=== PATIENT | male | born 1950 | race Caucasian/White ===

== ENCOUNTER → 2019-06-11 10:36 | Outpatient (CLI) | payer MEDICARE, SELFPAY ==
[2019-06-11 12:26] LABS: Prostate Specific Antigen Scrn 1.71 ng/mL (0.1-4.0)
== END ==
PROVIDERS: PCP Student in an Organized Health Care Education/Training Program; Visit Provider Student in an Organized Health Care Education/Training Program
DX: Z12.5 Encounter for screening for malignant neoplasm of prostate (principal)
CPT/HCPCS: 36415; G0103

== ENCOUNTER 2020-10-05 13:27 | Emergency (ER) | payer MEDICARE, SELFPAY ==
[2020-10-05] VITALS (16 sets, daily range): BP systolic 135–188; BP diastolic 89–101; PULSE 58–76; RESP 14–28; TEMP 36.7; O2SAT 93–98; BMI 25.0
--- NOTE | 2020-10-05 13:43 | DI.RAD.S_ITS ---
PROCEDURE: XR CHEST 1V INDICATIONS: chest pain TECHNIQUE: One view of the chest was acquired. COMPARISON: None. FINDINGS: Surgical changes and devices: None. Lungs and pleura: Lungs are clear. No pleural effusions or pneumothorax. Mediastinum: Mediastinal contours appear normal. Heart size is normal. Bones and chest wall: No suspicious bony lesions. Overlying soft tissues appear unremarkable. IMPRESSION: No acute cardiopulmonary pathology. Dictated by: Dany Allison M.D. on 10/05/2020 at 14:11 Approved by: Dany Allison M.D. on 10/05/2020 at 14:18
[2020-10-05 13:49] LABS: Add Manual Diff / Slide Review NO; Basophils Absolute Auto 100 /uL (0-100); Eosinophils Absolute Auto 100 /uL (0-450); Eosinophils Percent Auto 0.9 % (2-4); Hematocrit 46.4 % (41-53); Hemoglobin 15.6 g/dL (13.5-17.5); Lymphocytes Absolute Auto 1500 /uL (1100-4500); Lymphocytes Percent Auto 25.4 % (25-40); Mean Corpuscular HGB Conc 33.7 % (30-36); Mean Corpuscular Hemoglobin 31.9 PG (26-34); Mean Corpuscular Volume 94.5 fL (80-100); Monocytes Absolute Auto 600 /uL (0-900); Monocytes Percent Auto 9.2 % (3-14); Neutrophils Absolute Auto 3800 /uL (1500-7000); Neutrophils Percent Auto 63.5 % (50-75); Platelet Count 279 X10^3/uL (150-400); Red Blood Cell Count 4.91 X10^6/uL (4.5-5.9); Red Cell Distribution Width 12.9 % (11.6-14.8)
--- NOTE | 2020-10-05 13:49 | ED.CHESTPAIN ---
HPI - Chest Pain General Chief Complaint: Chest Pain Stated Complaint: sharp pains in shoulr blades/chest tightness today Time Seen by Provider: 10/05/20 13:46 Source: patient Mode of arrival: Ambulatory Limitations: no limitations History of Present Illness HPI narrative: This is a 70-year-old male who comes in with complaint of discomfort between his shoulder blades and a little bit to the left. Patient states he woke up with these symptoms at 6:30 a.m. this morning. It has been slowly decreasing but not completely resolved. Patient states that he does not really have any chest pain. The discomfort does not really radiate to his neck, shoulders or elsewhere. He feels little bit more internally. He finds it is worse if he moves his neck or with movement of his body. Exertion does not seem to worsen his symptoms. Patient denies any fevers, no chills, no cold, cough or congestion. He denies any shortness of breath. No nausea, no no emesis, no other GI symptoms or urinary symptoms. Patient has not had any diaphoresis. Denies any swelling in his extremities. He normally takes a baby aspirin daily, and simvastatin. He has had hernia repair. Denies any other surgical history. No prior cardiac stents, no stress test or heart catheterizations. Patient denies tobacco, alcohol or illicit. Family history grandmother mother of lung cancer related to tobacco use. He has several nieces with congenital cardiac anomalies as well as an aunt all on the same side of the family. Dr. Harrington is his PCP. Related Data Home Medications Medication Instructions Recorded Confirmed aspirin 81 mg tablet,delayed 81 mg PO DAILY 11/29/18 07/14/20 release Previous Rx's Medication Instructions Recorded simvastatin 40 mg tablet 40 mg PO BEDTIME #90 tab 07/14/20 Allergies Allergy/AdvReac Type Severity Reaction Status Date / Time No Known Drug Allergies Allergy Verified 10/05/20 13:44 Review of Systems Review of Systems ROS Unobtainable: All systems reviewed & are unremarkable except as noted in HPI and below Patient History Medical History Abnormal chest x-ray Colon polyps Surgical History Anesthesia History of hernia surgery Family History Father No problems noted. Mother Cancer Sister No problems noted. Grandfather Cancer Grandmother Cancer Grandfather No problems noted. Grandmother Cancer Social History Smoking Status: Never smoker alcohol intake: current (1-2 glasses of wine) substance use type: does not use Smoking Status: Never smoker alcohol intake frequency: holidays/special occasions only Substance Use Type: does not use Exam Narrative Exam Narrative: GENERAL: Alert and oriented x three, well-nourished, well-appearing male in mild distress. HEENT: Head normocephalic, atraumatic, EOMI, pupils reactive, face symmetric, moist mucous membranes NECK: Supple, full range of motion CARDIOVASCULAR: Regular rate and rhythm without murmurs, rubs or gallops. RESPIRATORY: Breath sounds equal bilaterally, no wheezes rales or rhonchi. ABDOMEN: Soft, nontender. Normoactive bowel sounds all 4 quadrants. No guarding or rebound, rigidity, no mass : No CVA tenderness BACK: No cervical, thoracic or lumbar vertebral point tenderness. Patient has normal range of motion. Patient's gait is normal. Patient has a superficial laceration/linear abrasion over the left scapular region that is 2 cm in length, he is tender just underneath this area. Patient has some muscular point tenderness with palpation. There is no erythema, warmth, discharge or signs of infection. EXTREMITIES: Normal range of motion, no clubbing or edema. Neurovascularly intact. NEUROLOGICAL: Cranial nerves II through XII grossly intact. Moving all extremities SKIN: Warm, dry, no petechiae, no rashes or lesions other than described above. Initial Vital Signs Initial Vital Signs: Vital Signs Temperature 98.0 F 10/05/20 13:28 Pulse Rate 76 10/05/20 13:28 Respiratory Rate 14 10/05/20 13:28 Blood Pressure 188/95 H 10/05/20 13:28 Pulse Oximetry 97 10/05/20 13:28 Course Orders Ordered: ED Orders 10/05/20 13:40 Complete Blood Count AUTO DIFF Stat Comprehensive Metabolic Panel Stat Lipase Stat Partial Thromboplastin Time Stat Prothrombin Time INR Stat Troponin & CK Cardiac Panel Stat 10/05/20 13:43 XR chest 1V Stat EKG-12 Lead Stat 10/05/20 15:55 Troponin I Stat Discontinued Medications Aspirin (Aspirin 81 Mg Chew Tab) 324 mg PO NOW ONE Stop: 10/05/20 14:25 Last Admin: 10/05/20 14:30 Dose: 324 mg Documented by: VENKATESH Nitroglycerin (Nitroglycerin 0.4 Mg Sl Tab) 0.4 mg SL NOW ONE Stop: 10/05/20 14:25 Last Admin: 10/05/20 14:30 Dose: 0.4 mg Documented by: VENKATESH Vital Signs Vital signs: Vital Signs - 8 hr 10/05/20 13:28 10/05/20 13:39 10/05/20 14:10 Temperature 98.0 F Pulse Rate 76 69 64 Respiratory Rate 14 17 21 Blood Pressure 188/95 H 169/101 H Pulse Oximetry 97 97 97 10/05/20 14:15 10/05/20 14:20 10/05/20 14:25 Temperature Pulse Rate 64 60 62 Respiratory Rate 21 23 22 Blood Pressure Pulse Oximetry 97 97 95 10/05/20 14:30 10/05/20 14:35 10/05/20 14:40 Temperature Pulse Rate 61 70 65 Respiratory Rate 28 H 24 27 H Blood Pressure 187/91 H 160/89 H Pulse Oximetry 97 93 95 10/05/20 14:41 10/05/20 14:45 10/05/20 15:00 Temperature Pulse Rate 69 63 61 Respiratory Rate 25 H 22 18 Blood Pressure 135/89 135/91 H 150/95 H Pulse Oximetry 95 95 94 10/05/20 15:30 10/05/20 16:00 10/05/20 16:30 Temperature Pulse Rate 63 58 L 61 Respiratory Rate 21 18 26 H Blood Pressure 162/98 H 161/90 H 176/95 H Pulse Oximetry 96 96 96 10/05/20 17:56 Temperature Pulse Rate 64 Respiratory Rate 15 Blood Pressure 176/95 H Pulse Oximetry 98 MDM - Chest Pain Lab Data Result diagrams: 10/05/20 13:40 10/05/20 13:40 Labs: Lab Results 10/05/20 10/05/20 10/05/20 Range/Units 13:40 13:40 13:40 WBC 6.0 (4.5-11.0) X10^3/uL RBC 4.91 (4.5-5.9) X10^6/uL Hgb 15.6 (13.5-17.5) g/dL Hct 46.4 (41-53) % MCV 94.5 (80-100) fL MCH 31.9 (26-34) PG MCHC 33.7 (30-36) % RDW 12.9 (11.6-14.8) % Plt Count 279 (150-400) X10^3/uL Neut % (Auto) 63.5 (50-75) % Lymph % (Auto) 25.4 (25-40) % [place] % (Auto) 9.2 (3-14) % Eos % (Auto) 0.9 L (2-4) % Baso % (Auto) 1.0 (0-2) % Neut # (Auto) 3800 (0116-8454) /uL Lymph # (Auto) 1500 (2586-5700) /uL [place] # (Auto) 600 (0-900) /uL Eos # (Auto) 100 (0-450) /uL Baso # (Auto) 100 (0-100) /uL PT 11.1 (10.1-12.7) SECONDS INR 1.0 (0.9-1.3) APTT 31 (26.4-36.2) SECONDS Sodium 137 (137-145) mmol/L Potassium 4.0 (3.4-5.1) mmol/L Chloride 105 (98-107) mmol/L Carbon Dioxide 25 (22-32) mmol/L BUN 17 (9-20) mg/dL Creatinine 0.76 (0.66-1.25) mg/dL Estimated GFR > 60.0 (>60) mL/min BUN/Creatinine Ratio 22.4 H (6-22) Glucose 109 (80-110) mg/dL Calcium 9.3 (8.4-10.2) mg/dL Total Bilirubin 0.7 (0.2-1.3) mg/dL AST 29 (17-59) IU/L ALT 22 (<50) IU/L Alkaline Phosphatase 88 (38-126) U/L Total Creatine Kinase 79 (55-170) U/L CK-MB (CK-2) TNP CK-MB (CK-2) Rel Index TNP Troponin I < 0.012 (0.01-0.034) ng/mL Total Protein 7.4 (6.3-8.2) g/dL Albumin 4.5 (3.5-5.0) g/dL Globulin 2.9 (1.7-4.1) g/dL Albumin/Globulin Ratio 1.6 (1.0-2.8) Lipase 68 (23-300) U/L 10/05/20 Range/Units 15:55 WBC (4.5-11.0) X10^3/uL RBC (4.5-5.9) X10^6/uL Hgb (13.5-17.5) g/dL Hct (41-53) % MCV (80-100) fL MCH (26-34) PG MCHC (30-36) % RDW (11.6-14.8) % Plt Count (150-400) X10^3/uL Neut % (Auto) (50-75) % Lymph % (Auto) (25-40) % [place] % (Auto) (3-14) % Eos % (Auto) (2-4) % Baso % (Auto) (0-2) % Neut # (Auto) (0431-0115) /uL Lymph # (Auto) (2232-1685) /uL [place] # (Auto) (0-900) /uL Eos # (Auto) (0-450) /uL Baso # (Auto) (0-100) /uL PT (10.1-12.7) SECONDS INR (0.9-1.3) APTT (26.4-36.2) SECONDS Sodium (137-145) mmol/L Potassium (3.4-5.1) mmol/L Chloride (98-107) mmol/L Carbon Dioxide (22-32) mmol/L BUN (9-20) mg/dL Creatinine (0.66-1.25) mg/dL Estimated GFR (>60) mL/min BUN/Creatinine Ratio (6-22) Glucose (80-110) mg/dL Calcium (8.4-10.2) mg/dL Total Bilirubin (0.2-1.3) mg/dL AST (17-59) IU/L ALT (<50) IU/L Alkaline Phosphatase (38-126) U/L Total Creatine Kinase (55-170) U/L CK-MB (CK-2) CK-MB (CK-2) Rel Index Troponin I < 0.012 (0.01-0.034) ng/mL Total Protein (6.3-8.2) g/dL Albumin (3.5-5.0) g/dL Globulin (1.7-4.1) g/dL Albumin/Globulin Ratio (1.0-2.8) Lipase (23-300) U/L Imaging Data Chest x-ray: Radiologist's Impression: [address] [id number] ReportSigned Patient: Guillaume De León RMR#: [id number]: 1950Acct:[id number]/Sex: 70 / MDate of Service: 10/05/20Loc: EDAccession Number: [id number] Procedure: XR chest 1V Ordering Provider: Radha Rios D.O. PROCEDURE: XR CHEST 1V INDICATIONS: chest pain TECHNIQUE: One view of the chest was acquired. COMPARISON: None. FINDINGS: Surgical changes and devices: None. Lungs and pleura: Lungs are clear. No pleural effusions or pneumothorax. Mediastinum: Mediastinal contours appear normal. Heart size is normal. Bones and chest wall: No suspicious bony lesions. Overlying soft tissues appear unremarkable. IMPRESSION: No acute cardiopulmonary pathology. Dictated by: Dany Allison M.D. on 10/05/2020 at 14:11 Approved by: Dany Allison M.D. on 10/05/2020 at 14:18 ECG Data Attestation: I personally reviewed and interpreted this ECG as follows: Prior ECG tracings: not available for review Interpretation: Sinus rhythm rate of 68, FL 122, QRS of 129 and QTC 449. Patient has right bundle-branch block. Left axis deviation. No prior EKGs for comparison. EKG2. Patient's EKG shows sinus rhythm right bundle branch. There is is T-waves flipped in 1, 2 and aVL which is changed from prior. Patient also has upright T-wave in AVR and lead 3 which were downwards. EKG3. Sinus bradycardia left axis deviation with right bundle-branch block. Rate of 58, P are 124, QRS of 128 QTC 447. Patient's EKG appears similar to their 1st with no new EKG changes. MDM Narrative Medical decision making narrative: This is a 70-year-old male who comes to emergency department with sharp pain/tightness in his shoulder blade region. Patient does have some musculoskeletal component with movement and palpation. Initial EKG shows right bundle branch block with left axis deviation. Troponin are negative patient's chest x-ray and additional labs. Patient was hypertensive and given sublingual nitro which improved his pressure, it also did seem to help his thoracic pain. Patient was greater than 6 hours from his initial onset of symptoms but troponin was repeated and repeat is negative as well. EKG was repeated changes but do not appear consistent with cardiac change and possibly lead placement so asked be repeated a 3rd time and this appears consistent with prior. Discussed with patient plan for follow-up with primary care, continue aspirin and his simvastatin although my suspicion is more likely musculoskeletal. Discharge Plan Departure Patient Disposition: Home Clinical Impression: Back pain, thoracic Instructions: DI for Thoracic Back Pain Activity Restrictions/Additional Instructions: Follow up with your physician this week for recheck. Was them know you were seen in the emergency department. You may wish to discuss about possible stress testing. I would recommend taking an aspirin 324 mg daily until you follow-up with her physician. Return to the ER for fevers, new or worsening chest pain, thoracic pain that is changing, worsening, shortness of breath, diaphoresis or sweating, lightheadedness or passing out, persistent vomiting other new or concerning symptoms. Prescriptions: No Action aspirin 81 mg tablet,delayed release (DR/EC) 81 mg PO DAILY RF: 0 simvastatin 40 mg tablet 40 mg PO BEDTIME Qty: 90 RF: 3 Referrals: Shai De Leon MD [Primary Care Provider] -
[2020-10-05 13:54] LABS: Prothrombin Time 11.1 SECONDS (10.1-12.7)
[2020-10-05 13:56] LABS: PTT Partial Thromboplastin Tim 31 SECONDS (26.4-36.2)
--- NOTE | 2020-10-05 13:58 | PC.NURSE ---
bp on left side 180/109 right arm 188/95
[2020-10-05 14:01] LABS: Alanine Aminotransferase 22 IU/L (<50); Albumin 4.5 g/dL (3.5-5.0); Albumin Globulin Ratio 1.6 (1.0-2.8); Alkaline Phosphatase 88 U/L (38-126); Aspartate Aminotransferase 29 IU/L (17-59); BUN Creatinine Ratio 22.4 (6-22); Bilirubin Total 0.7 mg/dL (0.2-1.3); Blood Urea Nitrogen 17 mg/dL (9-20); Calcium 9.3 mg/dL (8.4-10.2); Carbon Dioxide 25 mmol/L (22-32); Chloride 105 mmol/L (98-107); Creatine Kinase 79 U/L (55-170); Estimated Glomerular Filt Rate > 60.0 mL/min (>60); Globulin 2.9 g/dL (1.7-4.1); Glucose 109 mg/dL (80-110); HEMOLYSIS < 15 (0-50); Lipase 68 U/L (23-300); Sodium 137 mmol/L (137-145); Total Protein 7.4 g/dL (6.3-8.2)
[2020-10-05 14:13] LABS: Troponin I < 0.012 ng/mL (0.01-0.034)
[2020-10-05] MEDS: ASPIRIN 81 MG CHEW TAB 324 MG PO (14:30)
[2020-10-05] MEDS: NITROGLYCERIN 0.4 MG SL TAB SL (14:30)
--- NOTE | 2020-10-05 14:43 | PC.NURSE ---
Pt states pain left back down from 2/10 to 0/10 s/p 1 dose NTG SL.
[2020-10-05 16:48] LABS: Troponin I < 0.012 ng/mL (0.01-0.034)
== END 2020-10-05 17:57 | disposition home or self-care (01) ==
PROVIDERS: Emergency Provider Emergency Medicine; PCP Student in an Organized Health Care Education/Training Program
DX: M54.6 Pain in thoracic spine (principal); R07.9 Chest pain, unspecified; I10 Essential (primary) hypertension
CPT/HCPCS: 36415; 71045; 80053; 82550; 83690; 84484; 85025; 85610; 85730; 93005; 93010; 99283; 99284

== ENCOUNTER → 2020-11-12 10:03 | Outpatient (CLI) | payer MEDICARE, SELFPAY ==
[2020-11-12 11:29] LABS: COVID19 -Nasal RAPID Negative (Negative)
== END ==
PROVIDERS: PCP Student in an Organized Health Care Education/Training Program; Visit Provider Surgery
DX: Z20.822 Contact with and (suspected) exposure to COVID-19 (principal)
CPT/HCPCS: 87635; C9803

== ENCOUNTER 2020-11-15 08:03 | Day surgery (SDC) | payer MEDICARE, SELFPAY ==
[2020-11-15] VITALS (7 sets, daily range): BP systolic 123–156; BP diastolic 78–97; PULSE 55–72; RESP 12–18; TEMP 36–36.7; O2SAT 96–98; BMI 24.5
--- NOTE | 2020-11-15 | PATH_ITS ---
[facility] Accession Number: [id number] . 01 Material submitted: . rectum - RECTUM POLYP . 02 Diagnosis: Rectum Polyp: Tubular adenoma. MRV 11/17/2020 1326 Local . 02 Electronically signed: . Yolette Boothe MD, Pathologist NPI- [id number] . 01 Gross description: . RECTUM POLYP: Received in formalin is 1 fragment(s) of ramírez, soft tissue measuring 0.3 x 0.3 x 0.3 cm submitted entirely in 1 cassette(s) /BETHANIE 11/16/20204 Local . 02 Pathologist provided ICD-10: K63.5 . 02 CPT . 355238 Performed at: 01 [facility] [place] [facility] [address] [id number] MD Shilo Wolfe MD Phone: [phone] Performed at: 02 [facility] [address] [place], [place] [id number] MD Itzel Lo MD Phone: [phone]
[2020-11-15] MEDS: LACTATED RINGERS 1,000 ML 200 ML IV (08:31)
--- NOTE | 2020-11-15 09:12 | PM.HP.1 ---
History of Present Illness History of Present Illness Date Patient Seen: 11/15/20 Time Patient Seen: 09:12 Chief complaint: SDC Narrative: The patient presents for colorectal sreening. He's had previous colonoscopy most recently 10 years ago and normal. No personal or family history of colon cancer. On further history denies any recent gastrointestinal symptoms. No nausea, vomiting, abdominal pain, loss of appetite, unexplained weight loss, change in bowel habits, diarrhea, constipation, melena, hematochezia, or bright red blood per rectum. Patient History Medical History Abnormal chest x-ray Colon polyps Surgical History Anesthesia History of hernia surgery Family & Social History Family History Father No problems noted. Mother Cancer Sister No problems noted. Grandfather Cancer Grandmother Cancer Grandfather No problems noted. Grandmother Cancer Social History: household members spouse Tobacco & Substance use: Smoking Status Never smoker alcohol intake current alcohol intake frequency 0-2 drinks per day Substance Use Type does not use Meds Home Medications and Allergies Home Medications Medication Instructions Recorded Confirmed Type aspirin 81 mg tablet,delayed 81 mg PO DAILY 11/29/18 11/15/20 History release simvastatin 40 mg tablet 40 mg PO BEDTIME #90 tab 07/14/20 11/15/20 Rx tamsulosin 0.4 mg capsule 0.4 mg PO BEDTIME #30 cap 10/26/20 11/15/20 Rx Allergies Allergy/AdvReac Type Severity Reaction Status Date / Time No Known Drug Allergies Allergy Verified 11/15/20 08:26 Review of Systems Review of Systems ROS: Yes All systems reviewed with the patient and are negative except as otherwise documented Exam Vital Signs (past 8 hours): - 11/15/20 08:31 Temperature 97.2 F L Pulse Rate 60 Respiratory Rate 16 Blood Pressure 156/89 H Pulse Oximetry 98 Oxygen Delivery Method Room Air Narrative Exam Narrative: General-no acute distress, well nourished adult male HEENT-moist mucous membranes, no scleral icterus Neck-supple, no lymphadenopathy Chest- non labored respirations, clear to auscultation bilaterally Cardiac-regular rate no peripheral edema Abdomen-soft, nontender, non distended Extremities-warm, well perfused Neurological-alert and oriented, no focal deficits Assessment & Plan Assessment & Plan narrative: The patient requires colorectal screening and colonoscopy is recommended. Technical details were discussed. Risks, benefits, alternatives explained. Risks including but not limited to myocardial infarction, aspiration, bleeding, pain, missed lesion, incomplete examination, need for further radiographic studies, colonic perforation, and need for major abdominal surgery were discussed. All questions were answered to their satisfaction, and they are in agreement with this plan.
[2020-11-15] MEDS: MIDAZOLAM 5 MG/5 ML VIAL IV (09:30)
[2020-11-15] MEDS: fentaNYL 250 MCG/5 ML INJ IV (09:30)
--- NOTE | 2020-11-15 09:45 | P.OP.ENDO_ITS ---
Operative Date/Time/Diagnoses Date of procedure: 11/15/20 Time of procedure: 09:45 Pre-op diagnosis: history of colonic polyps Post-op diagnosis: same Procedure & Clinicians Study performed: Colonoscopy Polypectomy Same procedure as scheduled: Yes Indications: 70-year-old man last colonoscopy 10 years ago normal personal history of colonic polyps here for screening colonoscopy Surgeon: Nando Mcgee Procedure Notes Procedure in detail: Medications: Conscious sedation using 5mg IV midazolam and 150mcg IV of fentanyl The history and physical was performed/updated and the patient is ASA class is 2. The procedure was discussed in detail with the patient. Potential risks complications including infection, bleeding, missed diagnosis, perforation, need for surgery, and were explained. Their questions were answered and informed consent was obtained. Patient was brought to the procedure room and placed standard monitoring equipment. The patient's vital signs were monitored continuously throughout the entire procedure. Prior to starting time-out was performed. The patient was placed in the left lateral recumbent position. Procedural sedation was administered. Examination began with a thorough inspection of the perianal area there was no evidence of fissures, fistulae, external hemorrhoids or cutaneous malignancy. The colonoscopy scope was then placed into the anal canal and was advanced to the cecum, which was identified by the ileocecal valve, the appendiceal orifice and the confluence of the taenia. The scope was then slowly withdrawn examining colon thoroughly in all directions, irrigating it of any res idual stool. 5 mm polyp within the rectum removed with the Jumbo biopsy forceps. Sigmoid diverticulosis The patient tolerated the procedure well. They will be discharged once criteria are met. The prep was of good/excellent quality. The withdrawl time was 9 minutes. The sedation time was 25 minutes. Specimen(s): other (Rectal polyp) Complications: none Impression: Colonic polyp Post-procedure Recommendations: Colonscopy in 5 years Disposition: same day surgery
--- NOTE | 2020-11-15 09:50 | SUR.PHASEI ---
Received to PACU after colonoscopy with sedation. Airway patent, self maintained. Report received from VICKIE Judd.
== END 2020-11-15 10:22 | disposition home or self-care (01) ==
PROVIDERS: PCP Student in an Organized Health Care Education/Training Program; Referring Provider Surgery; Visit Provider Surgery
PROC: 0DJD8ZZ Inspection of Lower Intestinal Tract, Via Natural or Artificial Opening Endoscopic (ICD-10-PCS; CPT 45378; principal; 2020-11-15 09:15)
DX: Z12.11 Encounter for screening for malignant neoplasm of colon (principal); Z86.010 Personal history of colon polyps; K57.30 Diverticulosis of large intestine without perforation or abscess without bleeding; D12.8 Benign neoplasm of rectum
CPT/HCPCS: 45380; 99152; J2250; J3010

== ENCOUNTER → 2020-12-16 12:37 | Outpatient (CLI) | payer MEDICARE, SELFPAY ==
[2020-12-16] MEDS: COVID-19 VACC #1, MRNA(MOD) 100 MCG/0.5 ML VIAL IM (12:46)
== END ==
PROVIDERS: PCP Student in an Organized Health Care Education/Training Program; Visit Provider Internal Medicine
DX: Z23 Encounter for immunization (principal)
CPT/HCPCS: 0011A; 91301

== ENCOUNTER → 2021-01-13 12:26 | Outpatient (CLI) | payer MEDICARE, SELFPAY ==
[2021-01-13] MEDS: COVID-19 VACC #2, MRNA(MOD) 100 MCG/0.5 ML VIAL IM (12:32)
== END ==
PROVIDERS: PCP Student in an Organized Health Care Education/Training Program; Visit Provider Internal Medicine
DX: Z23 Encounter for immunization (principal)
CPT/HCPCS: 0012A; 91301

== ENCOUNTER 2021-06-24 16:33 | Emergency (ER) | payer MEDICARE, SELFPAY ==
[2021-06-24 17:08] VITALS: BP 169/85; PULSE 63; RESP 18; TEMP 36.9; O2SAT 96; BMI 25.4
--- NOTE | 2021-06-24 18:57 | DI.US.S_ITS ---
PROCEDURE: US PERIPH VENOUS LOW EXTREM RT INDICATIONS: RIGHT THIGH PAINFUL LUMP TECHNIQUE: Real-time imaging, as well as color and pulse Doppler interrogation, were performed of the lower extremity deep veins from the inguinal ligament to the popliteal fossa. COMPARISON: None. FINDINGS: The common femoral, femoral and popliteal veins are normally compressible, and free of intraluminal thrombus. Color and pulse Doppler demonstrate normal phasic intraluminal flow. There is normal augmentation response to distal compression maneuver. IMPRESSION: No evidence of right lower extremity DVT. Dictated by: Jerome Ernst M.D. on 06/24/2021 at 21:51 Approved by: Jerome Ernst M.D. on 06/24/2021 at 21:52
--- NOTE | 2021-06-24 18:58 | DI.CT.S_ITS ---
PROCEDURE: CT ABDOMEN PELVIS W CON INDICATIONS: IV contrast only/right inguinal pain/hernia history TECHNIQUE: After the administration of intravenous contrast, axial sections acquired from the lung bases to the pubic symphysis. Coronal and sagittal reformats were performed. For radiation dose reduction, the following was used: automated exposure control, adjustment of mA and/or kV according to patient size. COMPARISON: None. FINDINGS: Image quality: Excellent. Lung bases: Unremarkable. Heart: No significant findings. ABDOMEN: Liver: Unremarkable. Gallbladder: Unremarkable. Biliary ducts: Unremarkable. Pancreas: Unremarkable. Spleen: Unremarkable. Adrenal Glands: Unremarkable. Kidneys and Ureters: Parapelvic renal cysts are present bilaterally. Stomach and Bowel: Stomach and small bowel is within normal limits. There is eccentric thickening of the right aspect of the anal rectal junction with a possible 35 mm diameter mass. Normal appendix. Peritoneum: No abnormal intraperitoneal fluid. No free air. Ventral Wall: No hernias. Abdominal Nodes: No retroperitoneal or mesenteric adenopathy by size criteria. Vessels: Aorta and inferior vena cava are normal in size. PELVIS: Pelvic Organs: Prostate is enlarged. Bladder: Unremarkable. Pelvic Nodes: No enlarged lymph nodes. Miscellaneous: Fat containing bilateral inguinal hernias are present. Bones: Unremarkable. IMPRESSION: 1. Fat containing bilateral inguinal hernias. No evidence of bowel containing hernias. 2. Possible an anorectal junction mass. Correlation with physical examination recommended. 3. Normal appendix. 4. Prostate enlargement. Recommend correlation with PSA values. Dictated by: Jerome Ernst M.D. on 06/24/2021 at 20:15 Approved by: Jerome Ernst M.D. on 06/24/2021 at 20:18
--- NOTE | 2021-06-24 19:00 | ED.MALEGU ---
HPI - Male Genitourinary General Chief complaint: Urogenital-Male Stated complaint: HERNIA PAIN ACROSS ABD VEIN BULGING RT LEG FOOT Time Seen by Provider: 06/24/21 18:47 Source: patient Mode of arrival: Family Vehicle Limitations: no limitations History of Present Illness HPI Narrative: Patient here for 2 complaints. Patient here with significant other. Complains of right inguinal pain as well as right distended vein in the right medial thigh. Patient has history of bilateral inguinal hernia repair greater than 25 years ago at [facility]. Has been doing well. Did see Dr. Mcgee recently for colonoscopy screening this past year. But no inguinal surgery. 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 Patient has history of distended vein in the right medial thigh for many years however have recently has had some swelling to it and then some foot tingling without back pain this past week. No changes in bowel movements. No urinary complaints. No chest pain no abdominal pain no dyspnea. No history of blood clots in legs or lungs. Does not recall any distended mass or hernia that he had to reduce himself. Has had scrotal discomfort on the right side. No urinary complaints. Denies any swelling or mass in the right scrotum Related Data Home Medications Medication Instructions Recorded Confirmed aspirin 81 mg tablet,delayed 81 mg PO DAILY 11/29/18 11/15/20 release Previous Rx's Medication Instructions Recorded simvastatin 40 mg tablet 40 mg PO BEDTIME #90 tab 07/14/20 tamsulosin 0.4 mg capsule 0.4 mg PO BEDTIME #90 cap 11/23/20 Allergies Allergy/AdvReac Type Severity Reaction Status Date / Time No Known Drug Allergies Allergy Verified 06/24/21 17:14 Review of Systems Review of Systems Narrative: GENERAL: Denies chills, fatigue, malaise, fever, sweats. HEENT: Denies sinus pain, ear pain, sore throat RESPIRATORY: Denies dyspnea, cough CARDIOVASCULAR: Denies chest pain, palpitations, positive for right thigh pain GASTROINTESTINAL: Denies nausea, vomiting, abdominal pain, positive for inguinal pain : Denies dysuria, frequency, hematuria MUSCULOSKELETAL: Complaint muscle denies bony pain, denies back pain SKIN: Denies rash, skin lesions NEUROLOGIC: Denies weakness, positive numbness right foot ROS Unobtainable: All systems reviewed & are unremarkable except as noted in HPI and below Patient History Medical History Abnormal chest x-ray Colon polyps Surgical History Anesthesia History of hernia surgery Family History Father No problems noted. Mother Cancer Sister No problems noted. Grandfather Cancer Grandmother Cancer Grandfather No problems noted. Grandmother Cancer Social History household members: spouse Smoking Status: Never smoker alcohol intake: current substance use type: does not use Smoking Status: Never smoker alcohol intake frequency: a few times a week Substance Use Type: does not use Exam Narrative Exam Narrative: GENERAL: in no distress, not toxic not dyspneic, pants and underwear removed. Socks and shoes removed. HEAD: Normocephalic. EYES: Pupils equal round No scleral icterus. No injection no discharge ENT: Mucous membranes moist. NECK: Trachea midline. CARDIOVASCULAR: Regular rate and rhythm without murmurs RESPIRATORY: Clear to auscultation. Breath sounds equal bilaterally. No wheezes, rales, or rhonchi. GASTROINTESTINAL: Abdomen soft, non-tender examination right inguinal area. As well as scrotal exam with digital insertion. No palpable hernia or mass in the scrotum with coughing. Slight palpable mass in the inguinal crease with coughing. No discoloration of the skin. Bowel sounds present. No peritoneal signs. EXTREMITIES: No gross deformities. Examination right lower extremity. There is distended vein at the right medial thigh. Nontender. No red streaking. No calf tenderness no palpable cords. BACK: No flank tenderness. NEURO: AOx4. SKIN: Warm and dry PSYCH: Not anxious, is cooperative Initial Vital Signs Initial Vital Signs: Vital Signs Temperature 98.4 F 06/24/21 17:08 Pulse Rate 63 06/24/21 17:08 Respiratory Rate 18 06/24/21 17:08 Blood Pressure 169/85 H 06/24/21 17:08 Pulse Oximetry 96 06/24/21 17:08 Course Course Course Narrative: No new issues during course of stay. Orders Ordered: Discontinued Medications Sodium Chloride (Normal Saline 0.9%) 500 mls @ 1,000 mls/hr IV BOLUS ONE Stop: 06/24/21 19:26 Last Infusion: 06/24/21 19:51 Dose: 0 mls/hr Documented by: Admin: 06/24/21 19:19 Dose: 1,000 mls/hr Documented by: LUANA Reevaluation(s) Reevaluation #1: Reviewed results with patient. Does not want wait for final results of the ultrasound of the leg. He does have established surgeon to follow up with regarding CT scan findings. As well as family doctor for the distended vein on his leg. Time: 21:26 Vital Signs Vital signs: Vital Signs - 8 hr 06/24/21 17:08 06/24/21 19:16 06/24/21 19:31 Temperature 98.4 F Pulse Rate 63 56 L 54 L Respiratory Rate 18 18 Blood Pressure 169/85 H 172/96 H Pulse Oximetry 96 97 96 06/24/21 20:02 06/24/21 20:30 06/24/21 21:00 Temperature Pulse Rate 53 L 60 57 L Respiratory Rate Blood Pressure Pulse Oximetry 98 97 97 MDM - Male Genitourinary Differential Diagnosis Differential diagnosis: Likely inguinal hernia and other (DVT/SVT) Medical Records Medical records narrative: Preliminary lower extremity venous Doppler no DVT on the right leg. Small punctate tiny compressible superficial veins. At the site of the right medial thigh lump Lab Data Result diagrams: 06/24/21 19:10 06/24/21 19:10 Labs: Lab Results 06/24/21 06/24/21 Range/Units 19:10 19:10 WBC 6.5 (4.5-11.0) X10^3/uL RBC 4.37 L (4.5-5.9) X10^6/uL Hgb 14.3 (13.5-17.5) g/dL Hct 41.7 (41-53) % MCV 95.4 (80-100) fL MCH 32.6 (26-34) PG MCHC 34.2 (30-36) % RDW 12.6 (11.6-14.8) % Plt Count 252 (150-400) X10^3/uL Neut % (Auto) 65.4 (50-75) % Lymph % (Auto) 22.3 L (25-40) % [place] % (Auto) 10.4 (3-14) % Eos % (Auto) 0.9 L (2-4) % Baso % (Auto) 1.0 (0-2) % Neut # (Auto) 4200 (1334-4680) /uL Lymph # (Auto) 1400 (8141-2599) /uL [place] # (Auto) 700 (0-900) /uL Eos # (Auto) 100 (0-450) /uL Baso # (Auto) 100 (0-100) /uL Sodium 138 (137-145) mmol/L Potassium 3.7 (3.4-5.1) mmol/L Chloride 108 H (98-107) mmol/L Carbon Dioxide 26 (22-32) mmol/L BUN 15 (9-20) mg/dL Creatinine 0.74 (0.66-1.25) mg/dL Estimated GFR > 60.0 (>60) mL/min BUN/Creatinine Ratio 20.3 (6-22) Glucose 96 (80-110) mg/dL Calcium 8.7 (8.4-10.2) mg/dL Total Bilirubin 0.4 (0.2-1.3) mg/dL AST 26 (17-59) IU/L ALT 21 (<50) IU/L Alkaline Phosphatase 78 (38-126) U/L Total Protein 6.6 (6.3-8.2) g/dL Albumin 4.1 (3.5-5.0) g/dL Globulin 2.5 (1.7-4.1) g/dL Albumin/Globulin Ratio 1.6 (1.0-2.8) Urine Dip Bedside Urine Glucose Negative Bedside Urine Bilirubin - Negative Bedside Urine Ketone - Negative Urine Specific [place] 1.025 Bedside Urine Occult Blood - Negative Bedside Urine pH 6.0 Bedside Urine Protein - Negative Bedside Urine Urobilinogen - Negative Bedside Urine Nitrite - Negative Bedside Urine Leukocytes - Negative Esterase Imaging Data CT scan - abdomen/pelvis: Radiologist's Impression: [address] [address] [address] Scan Report Signed Patient: Guillaume De León MR#: [id number] : 1950 Acct:[id number] Age/Sex: 70 / M Date of Service: 06/24/21 Loc: ED Accession Number: [id number] ?? Procedure: CT abdomen pelvis w con Ordering Provider: Dino Velazquez MD PROCEDURE:? CT ABDOMEN PELVIS W CON ? INDICATIONS:? IV contrast only/right inguinal pain/hernia history ? TECHNIQUE:? After the administration of intravenous contrast, axial sections acquired from the lung bases to the pubic symphysis.? Coronal and sagittal reformats were performed.? For radiation dose reduction, the following was used:? automated exposure control, adjustment of mA and/or kV according to patient size.? ? COMPARISON:? None. ? FINDINGS:? Image quality:? Excellent.? ? Lung bases:? Unremarkable. Heart:? No significant findings. ? ABDOMEN: Liver:? Unremarkable.? ? Gallbladder:? Unremarkable.? ? Biliary ducts:? Unremarkable.? ? Pancreas:? Unremarkable.? ? Spleen:? Unremarkable.? ? Adrenal Glands:? Unremarkable.? ? Kidneys and Ureters:? Parapelvic renal cysts are present bilaterally. ? Stomach and Bowel:? Stomach and small bowel is within normal limits.? There is eccentric thickening of the right aspect of the anal rectal junction with a possible 35 mm diameter mass.? Normal appendix. Peritoneum:? No abnormal intraperitoneal fluid.? No free air.? ? Ventral Wall: ? No hernias.? Abdominal Nodes:? No retroperitoneal or mesenteric adenopathy by size criteria.? Vessels:? Aorta and inferior vena cava are normal in size.? ? PELVIS: Pelvic Organs:? Prostate is enlarged. Bladder:? Unremarkable.? ? Pelvic Nodes: No enlarged lymph nodes.? Miscellaneous:? Fat containing bilateral inguinal hernias are present. ? Bones:? Unremarkable.? IMPRESSION: 1. Fat containing bilateral inguinal hernias.? No evidence of bowel containing hernias. 2. Possible an anorectal junction mass.? Correlation with physical examination recommended. 3. Normal appendix. 4. Prostate enlargement.? Recommend correlation with PSA values.? ? Dictated by: Jerome Ernst M.D. on 06/24/2021 at 20:15 ? ? Approved by: Jerome Ernst M.D. on 06/24/2021 at 20:18 ? US - DVT: Radiologist's Impression: [address] [address] Ultrasound Report Signed Patient: Guillaume De León MR#: [id number] : 1950 Acct:[id number] Age/Sex: 70 / M Date of Service: 06/24/21 Loc: ED Accession Number: [id number] ?? Procedure: US periph venous low extrem rt Ordering Provider: Dino Velazquez MD PROCEDURE:? US PERIPH VENOUS LOW EXTREM RT ? INDICATIONS:? RIGHT THIGH PAINFUL LUMP ? TECHNIQUE:? Real-time imaging, as well as color and pulse Doppler interrogation, were performed of the lower extremity deep veins from the inguinal ligament to the popliteal fossa.? ? COMPARISON:? None. ? FINDINGS:? The common femoral, femoral and popliteal veins are normally compressible, and free of intraluminal thrombus.? Color and pulse Doppler demonstrate normal phasic intraluminal flow.? There is normal augmentation response to distal compression maneuver. ? ? IMPRESSION:? No evidence of right lower extremity DVT. ? ? Dictated by: Jerome Ernst M.D. on 06/24/2021 at 21:51 ? ? Approved by: Jerome Ernst M.D. on 06/24/2021 at 21:52 ? MDM Narrative Medical decision making narrative: Appropriate for discharge home. Exam and imaging reassuring. Blood work as well. Patient agrees with treatment plan. Symptoms likely from recent working/exertion is aspirating his hernias as well as his right lower leg vessels. Return precautions reviewed with him and partner. They agree with treatment plan and follow-up. SVT finding on ultrasound likely chronic. Patient agrees no treatment at this time. Discharge Plan Departure Patient Disposition: Home Clinical Impression: Superficial vein thrombosis Inguinal hernia Qualifiers: Obstruction and gangrene presence: without obstruction or gangrene Laterality: unspecified laterality Recurrence: not specified as recurrent Qualified Code(s): K40.90 - Unilateral inguinal hernia, without obstruction or gangrene, not specified as recurrent Activity Restrictions/Additional Instructions: See family doctor regarding this swelling of the veins on your right leg that is chronic, contact the office next week. Call Dr. Mcgee regarding CT scan findings from today to compare with recent colonoscopy. Also see Dr. Mcgeeregarding your inguinal hernias. Return if worsening questions or concerns Prescriptions: No Action tamsulosin 0.4 mg capsule 0.4 mg PO BEDTIME Qty: 90 RF: 3 aspirin 81 mg tablet,delayed release (DR/EC) 81 mg PO DAILY RF: 0 simvastatin 40 mg tablet 40 mg PO BEDTIME Qty: 90 RF: 3 Referrals: Shai De Leon MD [Primary Care Provider] - Nando Mcgee MD [Physician] -
[2021-06-24 19:16] VITALS: BP 172/96; PULSE 56; RESP 18; O2SAT 97
[2021-06-24 19:16] LABS: Add Manual Diff / Slide Review NO; Basophils Absolute Auto 100 /uL (0-100); Eosinophils Absolute Auto 100 /uL (0-450); Eosinophils Percent Auto 0.9 % (2-4); Hematocrit 41.7 % (41-53); Hemoglobin 14.3 g/dL (13.5-17.5); Lymphocytes Absolute Auto 1400 /uL (1100-4500); Lymphocytes Percent Auto 22.3 % (25-40); Mean Corpuscular HGB Conc 34.2 % (30-36); Mean Corpuscular Hemoglobin 32.6 PG (26-34); Mean Corpuscular Volume 95.4 fL (80-100); Monocytes Absolute Auto 700 /uL (0-900); Monocytes Percent Auto 10.4 % (3-14); Neutrophils Absolute Auto 4200 /uL (1500-7000); Neutrophils Percent Auto 65.4 % (50-75); Platelet Count 252 X10^3/uL (150-400); Red Blood Cell Count 4.37 X10^6/uL (4.5-5.9); Red Cell Distribution Width 12.6 % (11.6-14.8); White Blood Cell Count 6.5 X10^3/uL (4.5-11.0)
[2021-06-24] MEDS: SODIUM CHLORIDE 0.9% 500 ML 1000 ML IV (19:19)
[2021-06-24 19:30] LABS: Alanine Aminotransferase 21 IU/L (<50); Albumin 4.1 g/dL (3.5-5.0); Albumin Globulin Ratio 1.6 (1.0-2.8); Alkaline Phosphatase 78 U/L (38-126); Aspartate Aminotransferase 26 IU/L (17-59); BUN Creatinine Ratio 20.3 (6-22); Bilirubin Total 0.4 mg/dL (0.2-1.3); Blood Urea Nitrogen 15 mg/dL (9-20); Calcium 8.7 mg/dL (8.4-10.2); Carbon Dioxide 26 mmol/L (22-32); Chloride 108 mmol/L (98-107); Estimated Glomerular Filt Rate > 60.0 mL/min (>60); Globulin 2.5 g/dL (1.7-4.1); Glucose 96 mg/dL (80-110); HEMOLYSIS 16 (0-50); Potassium 3.7 mmol/L (3.4-5.1); Sodium 138 mmol/L (137-145); Total Protein 6.6 g/dL (6.3-8.2)
[2021-06-24 19:31] VITALS: PULSE 54; O2SAT 96
[2021-06-24 20:02] VITALS: PULSE 53; O2SAT 98
[2021-06-24 20:30] VITALS: PULSE 60; O2SAT 97
[2021-06-24 21:00] VITALS: PULSE 57; O2SAT 97
== END 2021-06-24 21:43 | disposition home or self-care (01) ==
PROVIDERS: Emergency Provider Emergency Medicine; PCP Student in an Organized Health Care Education/Training Program
DX: I82.890 Acute embolism and thrombosis of other specified veins (principal); K40.90 Unilateral inguinal hernia, without obstruction or gangrene, not specified as recurrent
CPT/HCPCS: 36415; 74177; 80053; 81003; 85025; 93971; 96360; 99284; Q9967

== ENCOUNTER → 2023-08-02 13:11 | Outpatient (CLI) | payer MEDICARE, SELFPAY ==
[2023-08-02 13:33] LABS: Hematocrit 42.1 % (41-53); Hemoglobin 14.5 g/dL (13.5-17.5); Mean Corpuscular HGB Conc 34.3 % (30-36); Mean Corpuscular Hemoglobin 32.7 PG (26-34); Mean Corpuscular Volume 95.2 fL (80-100); Platelet Count 259 X10^3/uL (150-400); Red Blood Cell Count 4.42 X10^6/uL (4.5-5.9); Red Cell Distribution Width 12.7 % (11.6-14.8); White Blood Cell Count 5.1 X10^3/uL (4.5-11.0)
[2023-08-02 13:52] LABS: Alanine Aminotransferase 24 IU/L (<50); Albumin 4.4 g/dL (3.5-5.0); Albumin Globulin Ratio 1.6 (1.0-2.8); Alkaline Phosphatase 67 U/L (38-126); Aspartate Aminotransferase 27 IU/L (17-59); BUN Creatinine Ratio 23.7 (6-22); Bilirubin Total 0.8 mg/dL (0.2-1.3); Blood Urea Nitrogen 18 mg/dL (9-20); Calcium 9.5 mg/dL (8.4-10.2); Carbon Dioxide 27 mmol/L (22-32); Chloride 105 mmol/L (98-107); Cholesterol 220 mg/dL (140-199); Estimated Glomerular Filt Rate > 60 mL/min (>60); Globulin 2.7 g/dL (1.7-4.1); Glucose 105 mg/dL (80-110); HEMOLYSIS < 15 (0-50); Potassium 4.3 mmol/L (3.4-5.1); Sodium 139 mmol/L (137-145); Total Protein 7.1 g/dL (6.3-8.2); Triglycerides 140 mg/dL (35-150)
[2023-08-02 14:20] LABS: Prostate Specific Antigen 2.15 ng/mL (0.10-4.00)
[2023-08-02 14:21] LABS: TSH w/ Reflex to FT4 1.14 uIU/mL (0.47-4.68)
[2023-08-02 14:23] LABS: HDL Cholesterol 114 mg/dL (40-60); LDL Cholesterol Calculated 78 mg/dL (<100)
== END ==
PROVIDERS: PCP Internal Medicine; Referring Provider Internal Medicine; Visit Provider Internal Medicine
DX: N40.1 Benign prostatic hyperplasia with lower urinary tract symptoms (principal); N13.8 Other obstructive and reflux uropathy; E78.2 Mixed hyperlipidemia; M19.049 Primary osteoarthritis, unspecified hand
CPT/HCPCS: 36415; 80053; 80061; 84153; 84443; 85027

== ENCOUNTER → 2024-06-12 10:09 | Outpatient (CLI) | payer MEDICARE, SELFPAY ==
--- NOTE | 2024-06-12 10:11 | DI.RAD.S_ITS ---
PROCEDURE: XR LUMBAR SPINE 2-3V INDICATIONS: low back pain, fall TECHNIQUE: 3 views of the lumbar spine were acquired. COMPARISON: None. FINDINGS: Bones: Mild levoscoliosis of the lumbar spine. Mild straightening of the lumbar spine. Mild retrolisthesis of L2 on L3, L3 on L4, and L4 on L5. Vertebral body heights are well-maintained. Multilevel degenerative disc disease of the lumbar spine, most pronounced and severe at L2-3 and L5-S1. Severe lumbar facet arthropathy. Soft tissues: Overlying bowel gas pattern is normal. No suspicious soft tissue calcifications. IMPRESSION: Degenerative changes as described above. Dictated by: Susan Hubbard M.D. on 06/12/2024 at 16:20 Approved by: Susan Hubbard M.D. on 06/12/2024 at 16:22
== END ==
PROVIDERS: PCP Internal Medicine; Referring Provider Internal Medicine; Visit Provider Internal Medicine
DX: S39.012A Strain of muscle, fascia and tendon of lower back, initial encounter (principal); M51.36 Other intervertebral disc degeneration, lumbar region; M51.37 Other intervertebral disc degeneration, lumbosacral region; M47.816 Spondylosis without myelopathy or radiculopathy, lumbar region; W19.XXXA Unspecified fall, initial encounter
CPT/HCPCS: 72100

== ENCOUNTER → 2024-09-22 08:31 | Outpatient (CLI) | payer MEDICARE, SELFPAY ==
[2024-09-22 10:49] LABS: Aspartate Aminotransferase 29 IU/L (17-59); BUN Creatinine Ratio 24.4 (6-22); Blood Urea Nitrogen 21 mg/dL (9-20); Calcium 9.6 mg/dL (8.4-10.2); Carbon Dioxide 27 mmol/L (22-32); Chloride 105 mmol/L (98-107); Cholesterol 290 mg/dL (140-199); Estimated Glomerular Filt Rate > 60 mL/min (>60); Glucose 122 mg/dL (80-110); HEMOLYSIS < 15 (0-50); Potassium 4.6 mmol/L (3.4-5.1); Sodium 137 mmol/L (137-145); Triglycerides 164 mg/dL (35-150)
[2024-09-22 10:59] LABS: HDL Cholesterol 113 mg/dL (40-60); LDL Cholesterol Calculated 144 mg/dL (<100)
[2024-09-22 11:17] LABS: Prostate Specific Antigen 1.93 ng/mL (0.10-4.00)
== END ==
LOC: LAB 08:32
PROVIDERS: PCP Internal Medicine; Referring Provider Internal Medicine; Visit Provider Internal Medicine
DX: E78.2 Mixed hyperlipidemia (principal); N40.1 Benign prostatic hyperplasia with lower urinary tract symptoms; N13.8 Other obstructive and reflux uropathy
CPT/HCPCS: 36415; 80048; 80061; 84153; 84450

== ENCOUNTER 2025-01-15 10:13 | Emergency (ER) | payer MEDICARE, SELFPAY ==
[2025-01-15 10:21] VITALS: BP 166/85; PULSE 59; RESP 17; TEMP 36.6; O2SAT 99; BMI 22.8
--- NOTE | 2025-01-15 18:23 | ED.BACK ---
HPI - Back Pain/Injury General Chief Complaint: Back Pain/Injury Stated Complaint: Bilateral back pain Time Seen by Provider: 01/15/25 10:33 Related Data Home Medications Medication Instructions Recorded Confirmed aspirin 81 mg tablet,delayed 81 mg PO DAILY 11/29/18 01/15/25 release Previous Rx's Medication Instructions Recorded sildenafil (pulm.hypertension) 20 20 - 100 mg (1 - 5 x 20 mg) PO 09/22/24 mg tablet DAILY PRN sexual activity #30 tabs simvastatin 40 mg tablet 40 mg PO BEDTIME #90 tabs 09/22/24 Allergies Allergy/AdvReac Type Severity Reaction Status Date / Time atorvastatin AdvReac Intermediate Nausea Verified 01/15/25 10:25 Patient History Medical History BPH w urinary obs/LUTS History of colonic polyps Lumbar strain Mixed hyperlipidemia Surgical History Anesthesia History of hernia surgery Family History Father No problems noted. Mother Cancer Sister No problems noted. Grandfather Cancer Grandmother Cancer Grandfather No problems noted. Grandmother Cancer Social History details: (Puma Leyva), retired interior design household members: spouse alcohol intake: current substance use type: does not use Smoking Status: Never smoker alcohol intake frequency: a few times a week Alcohol type: wine Exam Initial Vital Signs Initial Vital Signs: Vital Signs Temperature 98 F 01/15/25 10:21 Pulse Rate 59 L 01/15/25 10:21 Respiratory Rate 17 01/15/25 10:21 Blood Pressure 166/85 H 01/15/25 10:21 Pulse Oximetry 99 01/15/25 10:21 Oxygen Delivery Method Room Air 01/15/25 10:21 MDM - Back Pain/Injury Differential Diagnosis Discussed with:: The provider did not see this patient as he left without being seen after triage and a chart could not be generated Lab Data Labs: Urine Dip Bedside Urine Glucose Negative Bedside Urine Bilirubin - Negative Bedside Urine Ketone - Negative Urine Specific [place] 1.015 Bedside Urine Occult Blood - Negative Bedside Urine pH 6.5 Bedside Urine Protein - Negative Bedside Urine Urobilinogen - Negative Bedside Urine Nitrite - Negative Bedside Urine Leukocytes - Negative Esterase Discharge Plan Departure Patient Disposition: Home Clinical Impression: Patient left without being seen Prescriptions: No Action aspirin 81 mg tablet,delayed release (DR/EC) 81 mg PO DAILY simvastatin 40 mg tablet 40 mg PO BEDTIME Qty: 90 3RF sildenafil (pulm.hypertension) 20 mg tablet 20 - 100 mg PO DAILY PRN (Reason: sexual activity) Qty: 30 5RF Rx Instructions: Take 30 minutes prior to sexual activity. Stand Alone Forms: Patient Portal/API/Survey
== END 2025-01-15 13:07 | disposition home or self-care (01) ==
PROVIDERS: Emergency Provider Emergency Medicine; PCP Internal Medicine
DX: M54.9 Dorsalgia, unspecified (principal); Z53.21 Procedure and treatment not carried out due to patient leaving prior to being seen by health care provider
CPT/HCPCS: 81003; 99281